=== PATIENT | female | born 2000 | race Two or more races ===

== ENCOUNTER 2024-03-05 16:47 | Observation (INO) | payer MEDICAID, SELFPAY ==
[2024-03-05 16:53] VITALS: BMI 48.2
[2024-03-05 17:10] VITALS: BP 129/76; PULSE 87
[2024-03-05] MEDS: CYCLObenzaPRINE 5 MG TABLET PO (17:41)
== END 2024-03-05 17:55 | disposition home or self-care (01) ==
PROVIDERS: Admitting Provider Obstetrics & Gynecology; PCP Family Medicine; Visit Provider Obstetrics & Gynecology
DX: O47.03 False labor before 37 completed weeks of gestation, third trimester (principal); Z3A.34 34 weeks gestation of pregnancy
CPT/HCPCS: 59025; 59899; A9270